=== PATIENT | female | born 1970 | race Caucasian/White ===

== ENCOUNTER 2016-10-25 08:32 | Day surgery (SDC) | payer BC ==
[~2016-10-25] VITALS: Ht 157.5 cm; Wt 87.0 kg
[~2016-10-25 08:32] MED LIST: LACTATED RINGERS 1,000 ML IV SCH; LEVOFLOXACIN 500 MG TAB (LEVAQUIN) PO SCH; LIDOCAINE 2% (XYLOCAINE) 10 ML UROJECT MM ONE; SODIUM CHLORIDE FLUSH 3 ML SYR IV PRN
[2016-10-25 08:47] VITALS: BP 156/82
[2016-10-25 09:58] VITALS: BP 149/88
== END 2016-10-25 10:10 | disposition home or self-care (01) ==
LOC: ASC 08:32
PROVIDERS: ATTEND Urology
PROC: 0TJB8ZZ Inspection of Bladder, Via Natural or Artificial Opening Endoscopic (ICD-10-PCS; principal; 2016-10-25)
DX: R31.29 Other microscopic hematuria (principal); N32.89 Other specified disorders of bladder; F17.210 Nicotine dependence, cigarettes, uncomplicated

== ENCOUNTER → 2016-11-30 | Outpatient (CLI) | payer BC ==
[2016-11-30 18:18] VITALS: BP 138/82
== END ==
LOC: MHUC 17:24
PROVIDERS: ATTEND Physician Assistant
DX: J40 Bronchitis, not specified as acute or chronic (principal)
CPT/HCPCS: 99213

== ENCOUNTER → 2017-01-05 | Outpatient (CLI) | payer BC ==
[~2017-01-05] MED LIST changes: +AZIT250T81 PO; +CHOL400T PO; +CYAN10006 PO; +ESCI10TA PO; -LACTATED RINGERS 1,000 ML IV SCH; -LEVOFLOXACIN 500 MG TAB (LEVAQUIN) PO SCH; -LIDOCAINE 2% (XYLOCAINE) 10 ML UROJECT MM ONE; +NAPR500T3 PO; +PYRI100T4 PO; -SODIUM CHLORIDE FLUSH 3 ML SYR IV PRN
[2017-01-05 16:16] LABS: BILIRUBIN,URINE Negative (Negative); COLOR,URINE Yellow; GLUCOSE, URINE (UA) Negative (Negative); LEUKOCYTE ESTERASE, URINE Negative (Negative); UROBILINOGEN,URINE 0.2 mg/dL (0.2-1.0)
[2017-01-05 16:26] LABS: CLARITY,URINE Slightly Cloudy; RBC,URINE 20-50 /HPF; URINE CENTRIFUGED VOLUME 12 mL
== END ==
LOC: LAB 15:57
PROVIDERS: ATTEND Urology
DX: R31.29 Other microscopic hematuria (principal)
CPT/HCPCS: 81003; 81015; 87077; 87088; 87186

== ENCOUNTER → 2017-02-16 | Outpatient (CLI) | payer BC ==
[2017-02-16 18:36] VITALS: BP 134/83
--- NOTE | 2017-02-16 18:36 | Urgent Care T Sheet Gen (E) ---
Intake General Temperature (Fahrenheit): 98.5 Pulse: 83 Blood Pressure Systolic: 134 Blood Pressure Diastolic: 83 Respirations: 19 SPO2: 98 Chief Complaint: UC Ear/Nose/Throat Complaint Description of Symptoms 46 year old female presents with nasal congestion and cough. Pt states her sx began Tuesday with Itchy eyes, nasal itching and sneezing. She took Claritin and today she began coughing more because of her post nasal drip. States she is coughing up yellow drainage. States rhinorrhea is clear and she has continued to sneeze. States she does smoke and was worried about getting pneumonia. Denies fever, chill, malaise, chest pain or shortness of breath. Source: Patient Exam Limitations: No limitations History of Present Illness Onset & Duration: Days (3) Timing: Still present Severity: Mild Modifying Factors: None Associated Symptoms: Cough, Nasal congestion, Sinus congestion Recent Trauma: No Similar Sympotms Previously: Yes Allergies: Coded Allergies: No Known Allergies (Verified Allergy, Unknown, 05/14/16) Uncoded Allergies: bandaids (Adverse Reaction, Mild, Rash, 05/14/16) Just bandaids, not tape. Home Meds Active Scripts Azithromycin (Zithromax Z-Cristiano)6 Tab/Pkt [id number] Mg PO SEE INSTRUCTIONS Infection #6 PKT Ref 0 Day One: Take 2 tablets by mouth Days Two-Five: Take 1 tablet by mouth Prov:GRICEL PANTOJA 11/30/16 Reported Medications Naproxen 500 Mg [id number] Mg PO DAILY Anti-Inflammatory Ref 0 10/22/16 Cholecalciferol (Vitamin D3) (Vitamin D)400 Unit [id number] Unit PO DAILY Vitamin /Mineral Supplemnt Ref 0 10/22/16 Pyridoxine HCl (Vitamin B-6)100 Mg [id number] Mg PO DAILY 10/22/16 Cyanocobalamin (Vitamin B-12) (Vitamin B-12)1,000 Mcg Tablet1,000 Mcg PO DAILY 10/22/16 Respiratory Constitutional Symptoms: No Chills, No Diaphoresis, No Fever, No Weakness EENTM: No Eye pain, No Blurred vision, Eye tearingNo Double Vision, Ear pain (fullness)No Ear discharge, No Nose Pain, Nose Congestion Throat pain (scratchy , no pain, post nasal drip, no difficulty swallowing)No Throat swelling, No Mouth Pain Respiratory: CoughNo Orthopnea, No Short of breath, No Stridor Cardiovascular: No Chest pain, No Edema, No Palpitations Gastrointestinal/Abdominal: No Abdominal pain Genitourinary: No symptoms reportedNo Dysuria (Has history of UTI and has no sx currently), No Decreased output, No Frequency, No Hematuria, No Pain : No Musculoskeletal: No Back pain Skin: No Change in color, No Lesions, No Rash Neurological: No Headache All Other Systems Reviewed Remaining Systems: All other systems reviewed with negative findings Past Ghbhoez-Ejepfx-Nnovbg Hx Patient's Social History Alcohol Use: Denies Use Smoking Status: Current every day smoker Recent foreign travel: No Surgeries/Hospitalizations Hospitalization/Surgery Hx: HYSTERECTOMY, RIGHT KNEE Respiratory Respiratory History: None Cardiovascular Cardiovascular History: None Neuro/Muscular Neuro/Muscular History: None Gastrointestinal GI/Endocrine History: None Comment: ADDIE MENOPAUSAL Diabetes Diabetes: No HEENT Impaired Vision: None Hearing Impaired: None Psychosocial Behavior Disorders: None Physical Exam Physical Exam General Appearance: WD/WN No apparent distress Eyes, Ears, Nose, Throat Ex: PERRL/EOMI TMs normal Pharyngeal erythema (mild erythema, no edema, no exudates, ) Other (Nasal mucosa mildly inflamed with swollen turbinates and clear drainge bilaterally, Sinuses not TTP, no jaw pain) Neck Exam: Non tender Full range of motion Supple Normal inspection Normal thyroid Respiratory Exam: Chest non-tender Lungs clear Normal breath sounds No respiratory distress No accessory muscles used Cardiovascular Exam: Regular rate, rhythm No edema No gallop No JVD No murmur GI/ Exam: Non tender No organomegaly Normal bowel sounds No distention Back Exam: No CVA tenderness Skin Exam: Normal color Warm/dry/intact No rashes No embolic lesions Neurologic/Psychiatric Exam: Oriented times 4 CN's II-X nml No motor deficits No sensory deficits Mood/affect nml Lymphatic Exam: No adenopathy Departure Urgent Care Impression Chief Complaint: UC Ear/Nose/Throat Complaint Impression: Primary Impression: Upper respiratory infection Qualified Code: J06.9 - Acute upper respiratory infection, unspecified Departure Disposition: HOME OR SELF-CARE Condition: Stable Referrals: Rory Dubois MD (PCP) Additional Instructions: Reassured patient that lung sounds are clear, no fever, no shortness of breath, and oxygen level 98%, she does not have pneumonia. Advised her that this is a viral upper respiratory infection. Can use saline nasal irrigation BID, increase fluids, refrain from smoking. Can continue use of Claritin to reduce rhinorrhea. Can use Naproxen prn. Offered intranasal steroids but pt states they trigger a migraine. Offered Prednisone and pt declined. Encouraged pt to follow up with PCP. RTC if fever, worsening sx or sx persist and fail to improve.. End of report . KRISTA ARAMBULA APRN February 16, 2017 18:11
== END ==
LOC: MHUC 17:14
PROVIDERS: ATTEND Physician Assistant Surgical
DX: J06.9 Acute upper respiratory infection, unspecified (principal)
CPT/HCPCS: 99213